=== PATIENT | female | born 1970 | race Caucasian/White ===

== ENCOUNTER → 2021-08-10 | Outpatient (CLI) | payer OTHER ==
[2021-08-10 20:11] LABS: Anion Gap 5 mmol/L (6-16); Blood Urea Nitrogen 12 mg/dL (8-24); Bun/Creatinine Ratio 20.2 (12.0-20.0); CO2, Blood 27 mmol/L (21-32); Calcium, Blood 8.6 mg/dL (8.5-10.1); Chloride, Blood 112 mmol/L (98-108); Creatinine, Blood 0.59 mg/dL (0.40-1.00); Glomerular Filtration Rate >60 (60-); Glucose, Blood 152 mg/dL (70-99); Potassium, Blood 3.6 mmol/L (3.5-5.5); Sodium, Blood 144 mmol/L (136-145)
== END | disposition home or self-care (01) ==
LOC: LAB 19:00 → LAB SHORT 19:00
PROVIDERS: Internal Medicine
DX: E11.9 Type 2 diabetes mellitus without complications (principal); D52.9 Folate deficiency anemia, unspecified; D68.51 Activated protein C resistance; I63.9 Cerebral infarction, unspecified
CPT/HCPCS: 80048

== ENCOUNTER → 2021-09-13 | Outpatient (CLI) | payer OTHER ==
[2021-09-13 07:28] LABS: International Normalized Ratio 3.62; Prothrombin Time Results 34.9 Sec (9.7-11.5)
== END | disposition home or self-care (01) ==
LOC: LAB UVN 05:33 → EDSTATUS 15:06
PROVIDERS: Internal Medicine
DX: Z79.01 Long term (current) use of anticoagulants (principal); Z51.81 Encounter for therapeutic drug level monitoring; D68.51 Activated protein C resistance
CPT/HCPCS: 85610

== ENCOUNTER → 2021-09-14 | Outpatient (CLI) | payer OTHER ==
[2021-09-14 14:05] LABS: International Normalized Ratio 2.98; Prothrombin Time Results 29.1 Sec (9.7-11.5)
== END | disposition home or self-care (01) ==
LOC: LAB UVN 11:15 → EDSTATUS 15:07
PROVIDERS: Internal Medicine
DX: Z79.01 Long term (current) use of anticoagulants (principal); Z51.81 Encounter for therapeutic drug level monitoring; I63.9 Cerebral infarction, unspecified
CPT/HCPCS: 85610

== ENCOUNTER → 2021-09-19 | Outpatient (CLI) | payer OTHER ==
[2021-09-19 06:14] LABS: International Normalized Ratio 2.54; Prothrombin Time Results 25.1 Sec (9.7-11.5)
[2021-09-19 23:19] LABS: Bilirubin, Urine Neg (Neg); Blood, Urine 1+ (Neg); Glucose Qualitative, Urine Neg (Neg); Ketones, Urine Neg (Neg); Leukocyte Esterase, Urine 1+ (Neg); Nitrite, Urine Pos (Neg); Protein, Urine 1+ (Neg); Specific Gravity, Urine 1.025 (1.003-1.022); Urobilinogen, Urine 1+ (Normal)
[2021-09-19 23:36] LABS: Appearance, Urine Hazy (Clear); Color, Urine Yellow (P-Yellow)
[2021-09-19 23:37] LABS: Bacteria Many /hpf; Calcium Oxalate Crystals Few /hpf; Red Blood Cells, Urine 0-2 /hpf (0-2); Squamous Epithelial Cells Few /hpf (Few)
== END | disposition home or self-care (01) ==
LOC: LAB UVN 05:43 → EDSTATUS 15:08
PROVIDERS: Internal Medicine
DX: Z79.01 Long term (current) use of anticoagulants (principal); Z51.81 Encounter for therapeutic drug level monitoring; D68.51 Activated protein C resistance; R39.9 Unspecified symptoms and signs involving the genitourinary system
CPT/HCPCS: 81001; 85610; 87077; 87086; 87186

== ENCOUNTER → 2021-09-26 | Outpatient (CLI) | payer OTHER ==
[2021-09-26 17:16] LABS: International Normalized Ratio 3.34; Prothrombin Time Results 32.4 Sec (9.7-11.5)
== END | disposition home or self-care (01) ==
LOC: EDSTATUS 15:09 → LAB UVN 15:32
PROVIDERS: Internal Medicine
DX: Z79.01 Long term (current) use of anticoagulants (principal); Z51.81 Encounter for therapeutic drug level monitoring
CPT/HCPCS: 85610

== ENCOUNTER → 2021-09-27 | Outpatient (CLI) | payer OTHER ==
[2021-09-27 12:06] LABS: International Normalized Ratio 3.31; Prothrombin Time Results 32.1 Sec (9.7-11.5)
== END | disposition home or self-care (01) ==
LOC: LAB UVN 10:50 → EDSTATUS 15:10
PROVIDERS: Internal Medicine
DX: Z79.01 Long term (current) use of anticoagulants (principal); Z51.81 Encounter for therapeutic drug level monitoring; D68.51 Activated protein C resistance
CPT/HCPCS: 85610

== ENCOUNTER → 2021-09-28 | Outpatient (CLI) | payer OTHER ==
[2021-09-28 11:42] LABS: International Normalized Ratio 1.92; Prothrombin Time Results 19.3 Sec (9.7-11.5)
== END | disposition home or self-care (01) ==
LOC: LAB UVN 11:23 → EDSTATUS 15:11
PROVIDERS: Internal Medicine
DX: I69.322 Dysarthria following cerebral infarction (principal)
CPT/HCPCS: 85610

== ENCOUNTER → 2021-10-03 | Outpatient (CLI) | payer OTHER ==
[2021-10-03 07:37] LABS: International Normalized Ratio 2.37; Prothrombin Time Results 23.5 Sec (9.7-11.5)
== END | disposition home or self-care (01) ==
LOC: LAB UVN 05:32 → EDSTATUS 15:14
DX: Z79.01 Long term (current) use of anticoagulants (principal); Z51.81 Encounter for therapeutic drug level monitoring
CPT/HCPCS: 85610

== ENCOUNTER → 2021-10-10 | Outpatient (CLI) | payer OTHER ==
[2021-10-10 09:35] LABS: International Normalized Ratio 3.18
== END | disposition home or self-care (01) ==
LOC: LAB UVN 08:00 → EDSTATUS 15:17
PROVIDERS: Nurse Practitioner Family
DX: I10 Essential (primary) hypertension (principal); I63.9 Cerebral infarction, unspecified
CPT/HCPCS: 85610

== ENCOUNTER → 2021-10-24 | Outpatient (CLI) | payer OTHER ==
[2021-10-24 20:03] LABS: International Normalized Ratio 2.26; Prothrombin Time Results 22.5 Sec (9.7-11.5)
== END | disposition home or self-care (01) ==
LOC: EDSTATUS 12:21 → LAB UVN 19:44
PROVIDERS: Internal Medicine
DX: Z79.01 Long term (current) use of anticoagulants (principal); Z51.81 Encounter for therapeutic drug level monitoring
CPT/HCPCS: 85610

== ENCOUNTER → 2021-11-08 | Outpatient (CLI) | payer OTHER ==
[2021-11-08 09:38] LABS: International Normalized Ratio 2.41; Prothrombin Time Results 23.9 Sec (9.7-11.5)
== END ==
LOC: LAB UVN 08:46 → EDSTATUS 12:28
DX: I63.9 Cerebral infarction, unspecified (principal); I10 Essential (primary) hypertension
CPT/HCPCS: 85610

== ENCOUNTER → 2022-01-20 | Outpatient (CLI) | payer OTHER ==
[~2022-01-20] MED LIST: ATOR80 PO; METO25ER PO; TRAZ50 PO
[2022-01-20 07:59] LABS: International Normalized Ratio 1.62; Prothrombin Time Results 16.5 Sec (9.7-11.5)
== END ==
LOC: LAB UVN 06:30 → EDSTATUS 09:38
PROVIDERS: Nurse Practitioner Family
DX: Z51.81 Encounter for therapeutic drug level monitoring (principal); I10 Essential (primary) hypertension; I63.9 Cerebral infarction, unspecified; Z79.899 Other long term (current) drug therapy
CPT/HCPCS: 85610

== ENCOUNTER → 2022-01-25 | Outpatient (CLI) | payer OTHER ==
[2022-01-25 10:09] LABS: International Normalized Ratio 2.19; Prothrombin Time Results 21.8 Sec (9.7-11.5)
== END ==
LOC: LAB UVN 08:40 → EDSTATUS 09:40
PROVIDERS: Nurse Practitioner Family
DX: Z51.81 Encounter for therapeutic drug level monitoring (principal); I63.9 Cerebral infarction, unspecified; I10 Essential (primary) hypertension
CPT/HCPCS: 85610

== ENCOUNTER → 2022-01-26 | Outpatient (CLI) | payer OTHER ==
[2022-01-26 18:14] LABS: Appearance, Urine Cloudy (Clear); Bilirubin, Urine Neg (Neg); Blood, Urine 2+ (Neg); Color, Urine Yellow (P-Yellow); Glucose Qualitative, Urine Neg (Neg); Ketones, Urine Neg (Neg); Leukocyte Esterase, Urine 2+ (Neg); Nitrite, Urine Pos (Neg); Protein, Urine 2+ (Neg); Urobilinogen, Urine 1+ (Normal)
[2022-01-26 18:34] LABS: Bacteria Many /hpf; Squamous Epithelial Cells Mod /hpf (Few); White Blood Cells, Urine 25-50 /hpf (0-5)
[2022-01-26 18:35] LABS: Hyaline Casts 0-2 /lpf (0-2); Transitional Epithelial Cells Rare /hpf (0-Rare); Uric Acid Crystals Many /hpf
== END ==
LOC: EDSTATUS 09:41 → LAB UVN 15:00
PROVIDERS: Nurse Practitioner Family
DX: N39.0 Urinary tract infection, site not specified (principal)
CPT/HCPCS: 81001; 87077; 87086; 87186

== ENCOUNTER → 2022-02-08 | Outpatient (CLI) | payer OTHER ==
[2022-02-08 09:57] LABS: International Normalized Ratio 2.5; Prothrombin Time Results 24.7 Sec (9.7-11.5)
== END ==
LOC: LAB UVN 07:15 → EDSTATUS 09:42
PROVIDERS: Internal Medicine
DX: Z51.81 Encounter for therapeutic drug level monitoring (principal); Z79.01 Long term (current) use of anticoagulants
CPT/HCPCS: 85610

== ENCOUNTER → 2022-03-08 | Outpatient (CLI) | payer OTHER ==
[~2022-03-08] MED LIST changes: +AMOCLA875 PO; +Acetaminophen650 M1 PO; +BACLOFEN5 M1 PO; +BACTRIM DS TAB1 EAC6 PO; +BUPR150ER PO; +Buspirone HCl15 MG PO; +CLON.5 PO; +DESV50 PO; +FOLI1 PO; +LEVE500 PO; +LISI5 PO; +LOPE2C PO; +ONDA4ODT MM; +OSEL75CA PO; +PRED5 PO; +SULTRIDS PO; +TOPROL XL25 MG PO; +VISBIOME 112.51 EACH PO; +VITAMIN D325 MC3 PO; +WARF2.5 PO
[2022-03-08 08:33] LABS: International Normalized Ratio 2.89; Prothrombin Time Results 28.3 Sec (9.7-11.5)
== END | disposition home or self-care (01) ==
LOC: LAB UVN 07:45 → EDSTATUS 08:51
PROVIDERS: Nurse Practitioner Family
DX: Z79.01 Long term (current) use of anticoagulants (principal); Z51.81 Encounter for therapeutic drug level monitoring
CPT/HCPCS: 85610

== ENCOUNTER 2022-03-16 16:04 | Emergency (ER) | payer OTHER ==
[~2022-03-16] VITALS: Ht 165.1 cm; Wt 126.1 kg
[2022-03-16] MEDS ORDERED: ATOR80 PO (17:48)
[2022-03-16] MEDS ORDERED: METO25ER PO (17:50)
[2022-03-16] MEDS ORDERED: TRAZ50 PO (17:53)
[2022-03-16 18:07] LABS: BASOPHILS ABSOLUTE AUTO 0.02 K/mm3 (0.00-0.23); BASOPHILS PERCENT AUTO 0 % (0-2); EOSINOPHILS PERCENT AUTO 1 % (0-6); Hematocrit 43.1 % (33.0-51.0); Hemoglobin 14.1 g/dL (11.5-16.0); IMMATURE GRAN ABSOLUTE AUTO 0.03 K/mm3 (0.00-0.10); IMMATURE GRAN PERCENT AUTO 0 % (0-1); LYMPHOCYTES ABSOLUTE AUTO 1.41 K/mm3 (0.84-5.20); LYMPHOCYTES PERCENT AUTO 14 % (21-46); MONOCYTES ABSOLUTE AUTO 0.51 K/mm3 (0.16-1.47); MONOCYTES PERCENT AUTO 5 % (4-13); Mean Corpuscular HGB 31.5 pg (26.0-34.0); Mean Corpuscular HGB Conc 32.7 g/dL (31.5-36.5); Mean Corpuscular Volume 96 fL (80-100); Mean Platelet Volume 11.2 fL (9.1-12.4); NEUTROPHILS ABSOLUTE AUTO 8.13 K/mm3 (1.96-9.15); NEUTROPHILS PERCENT AUTO 80 % (41-73); Platelet Count 211 K/mm3 (150-400); RDW Coefficient Variation 14.3 % (11.7-14.2); RDW Standard Deviation 50.3 fL (35.1-46.3); Red Blood Cell Count 4.47 M/mm3 (3.80-5.20)
[2022-03-16 18:34] LABS: Albumin, Blood 2.9 g/dL (3.4-5.0); Albumin/Globulin Ratio 0.9 (0.8-1.8); Bilirubin, Total 0.8 mg/dL (0.1-1.0); Bun/Creatinine Ratio 23.7 (12.0-20.0); Calcium, Blood 8.8 mg/dL (8.5-10.1); Creatinine, Blood 0.55 mg/dL (0.40-1.00); Globulin, Blood 3.1 g/dL (2.2-4.0); Magnesium, Blood 1.8 mg/dL (1.6-2.4)
[2022-03-16 18:36] LABS: Potassium, Blood 5.4 mmol/L (3.5-5.5)
== END 2022-03-16 20:45 | disposition home or self-care (01) ==
LOC: ER 16:04
PROVIDERS: Emergency Medicine
DX: R41.82 Altered mental status, unspecified (principal); R47.1 Dysarthria and anarthria; Z79.899 Other long term (current) drug therapy
CPT/HCPCS: 70450; 80053; 83735; 85025; 93005; 93010

== ENCOUNTER → 2022-03-29 | Outpatient (CLI) | payer OTHER ==
[2022-03-29 09:40] LABS: Prothrombin Time Results 40.3 Sec (9.7-11.5)
[2022-03-29 09:49] LABS: International Normalized Ratio 4.22
== END | disposition home or self-care (01) ==
LOC: LAB UVN 08:31 → EDSTATUS 09:07
PROVIDERS: Internal Medicine
DX: I69.351 Hemiplegia and hemiparesis following cerebral infarction affecting right dominant side (principal); D68.51 Activated protein C resistance; I77.6 Arteritis, unspecified
CPT/HCPCS: 85610

== ENCOUNTER → 2022-04-17 | Outpatient (CLI) | payer OTHER ==
[2022-04-17 16:01] LABS: Prothrombin Time Results 29.3 Sec (9.7-11.5)
== END ==
LOC: EDSTATUS 10:23 → LAB UVN 14:15
PROVIDERS: Internal Medicine
DX: Z51.81 Encounter for therapeutic drug level monitoring (principal); Z86.73 Personal history of transient ischemic attack (TIA), and cerebral infarction without residual deficits; Z79.01 Long term (current) use of anticoagulants
CPT/HCPCS: 85610

== ENCOUNTER → 2022-04-24 | Outpatient (CLI) | payer OTHER ==
[2022-04-24 10:25] LABS: International Normalized Ratio 3.01; Prothrombin Time Results 29.4 Sec (9.7-11.5)
== END | disposition home or self-care (01) ==
LOC: LAB UVN 08:51 → EDSTATUS 10:24
PROVIDERS: Internal Medicine
DX: Z51.81 Encounter for therapeutic drug level monitoring (principal); D68.2 Hereditary deficiency of other clotting factors; Z86.73 Personal history of transient ischemic attack (TIA), and cerebral infarction without residual deficits; Z86.79 Personal history of other diseases of the circulatory system; Z79.01 Long term (current) use of anticoagulants
CPT/HCPCS: 85610

== ENCOUNTER 2022-04-30 11:22 | Inpatient (IN) | payer OTHER ==
[~2022-04-30] VITALS: Ht 162.6 cm; Wt 120.0 kg
[~2022-04-30 11:22] MED LIST changes: -AMOCLA875 PO; -Acetaminophen650 M1 PO; -BACLOFEN5 M1 PO; -BUPR150ER PO; -Buspirone HCl15 MG PO; -CLON.5 PO; -DESV50 PO; -FOLI1 PO; -LEVE500 PO; -LISI5 PO; -LOPE2C PO; -ONDA4ODT MM; -OSEL75CA PO; -PRED5 PO; -SULTRIDS PO; -TOPROL XL25 MG PO; -VISBIOME 112.51 EACH PO; -VITAMIN D325 MC3 PO; -WARF2.5 PO
[2022-04-30 12:59] LABS: BASOPHILS ABSOLUTE AUTO 0.03 K/mm3 (0.00-0.23); BASOPHILS PERCENT AUTO 0 % (0-2); EOSINOPHILS PERCENT AUTO 0 % (0-6); Hematocrit 47.9 % (33.0-51.0); Hemoglobin 16.2 g/dL (11.5-16.0); IMMATURE GRAN ABSOLUTE AUTO 0.03 K/mm3 (0.00-0.10); IMMATURE GRAN PERCENT AUTO 0 % (0-1); LYMPHOCYTES ABSOLUTE AUTO 1.27 K/mm3 (0.84-5.20); LYMPHOCYTES PERCENT AUTO 11 % (21-46); MONOCYTES ABSOLUTE AUTO 0.97 K/mm3 (0.16-1.47); MONOCYTES PERCENT AUTO 8 % (4-13); Mean Corpuscular HGB 31.2 pg (26.0-34.0); Mean Corpuscular HGB Conc 33.8 g/dL (31.5-36.5); Mean Corpuscular Volume 92 fL (80-100); Mean Platelet Volume 9.9 fL (9.1-12.4); NEUTROPHILS ABSOLUTE AUTO 9.59 K/mm3 (1.96-9.15); NEUTROPHILS PERCENT AUTO 81 % (41-73); Platelet Count 176 K/mm3 (150-400); RDW Coefficient Variation 13.6 % (11.7-14.2); RDW Standard Deviation 46.4 fL (35.1-46.3); White Blood Cell Count 11.89 K/mm3 (4.00-11.30)
[2022-04-30 13:19] LABS: Bun/Creatinine Ratio 18.8 (12.0-20.0); Calcium, Blood 8.7 mg/dL (8.5-10.1); Creatinine, Blood 0.64 mg/dL (0.40-1.00); Potassium, Blood 3.8 mmol/L (3.5-5.5)
[2022-04-30] MEDS ORDERED: ATOR80 PO (13:50)
[2022-04-30] MEDS ORDERED: FOLI1 PO (13:53)
[2022-04-30] MEDS ORDERED: Buspirone HCl15 MG PO (13:53)
[2022-04-30] MEDS ORDERED: BACLOFEN5 M1 PO (13:54)
[2022-04-30] MEDS ORDERED: LISI5 PO (13:54)
[2022-04-30] MEDS ORDERED: DESV50 PO (13:55)
[2022-04-30] MEDS ORDERED: PRED5 PO (13:55)
[2022-04-30] MEDS ORDERED: TOPROL XL25 MG PO (13:56)
[2022-04-30] MEDS ORDERED: TRAZ50 PO (13:56)
[2022-04-30] MEDS ORDERED: VITAMIN D325 MC3 PO (13:57)
[2022-04-30] MEDS ORDERED: WARF2.5 PO (13:57)
[2022-04-30] MEDS ORDERED: BUPR150ER PO (13:58)
[2022-04-30] MEDS ORDERED: LEVE500 PO (13:59)
[2022-04-30] MEDS ORDERED: CLON.5 PO (14:00)
[2022-04-30] MEDS ORDERED: Acetaminophen650 M1 PO (14:00)
[2022-04-30] MEDS ORDERED: ONDA4ODT MM (14:02)
[2022-04-30 15:41] LABS: International Normalized Ratio 3.29
--- NOTE | 2022-04-30 15:48 | NUR ---
ASSUMED CARE PT IS SOMNULENT AND DIFFICULT TO AROUSE. PT WAS ABLE TO STATE MONTH OF BIRTHDAY, BUT WAS NOT ABLE TO DISCERN ANY OTHER ANSWERS FROM PT D/T SOFT SPOKEN/SLURRING/SOMNULENCE. SPO2 >92% ON 6L HF NC. MAP >65. LUNG SOUNDS COARSE W/ RHONCHI; DIM BASES. PT HAS STRONG PEDAL AND RADIAL PULSES. MOTTLING NOTED IN BLE. RIGHT SIDED DEFICIT PER REPORT, BUT PT DOES NOT MAKE ANY ATTEMPTS TO MOVE BUE/BLE OR EVEN HEAD.
--- NOTE | 2022-04-30 17:54 | NUR ---
SHIFT SUMMARY PT HAS NOT ANY ACUTE EVENTS SINCE ASSUMED CARE NOTE. HR IS NOW IN THE 100-110S. CALLED DR ALEJO TO DISCERN IF PT'S MENTATION HAS DECLINED SINCE ED. AND TOLD HER THAT PT DOES NOT MOVE ANY EXTREMITIES, HOLD HEAD UP, IS SOMNULENT, AND ROLLS EYES WHEN MOVING HEAD DURING REPOSITIONING. THIS HAS BEEN PRESENT SINCE ASSUMPTION OF CARE (SEE NOTE).
--- NOTE | 2022-04-30 18:20 | NUR ---
UPDATE AFTER REASSESSING NEURO STATUS AGAIN POST SHIFT SUMMARY, PT IS MORE AROUSABLE, BUT STILL SOMNULENT. WAS ABLE TO STAY AWAKE FOR MORE THAN 1 OR 2 RESPONSES AND WAS ABLE TO MOVE LEFT ARM.
[2022-04-30] MEDS ORDERED: SULTRIDS PO (18:39)
--- NOTE | 2022-04-30 21:39 | NUR ---
ASSUMPTION OF CARE THIS RN ASSUMED CARE OF PT AT 1915, RECEIVED REPORT FROM MINGO WIGGINS. PT LYING IN BED. PT ANSWERING YES/NO QUESTIONS. PT IS ALERT AND INTERACTING WITH THIS RN. PT ABLE TO STATE SHE IS IN THE HOSPITAL, STATE NAME AND , KNOWS THE YEAR AND ABLE TO TELL THIS RN SHE LIVES AT [facility] [place]. PT HAS APHASIA AND IS DIFFICULT TO UNDERSTAND BUT TRIES TO ANSWER QUESTIONS. PT DOES BETTER ANSWERING Y/N QUESTIONS. VSS; SEE DOCUMENTATION. DENIES SOB, GENERAL PAIN AND CP OR PRESSURE. PT LUNG SOUNDS ARE COARSE; PT IS ABLE TO COUGH TO CLEAR. PERRLA, PT FOLLOWING COMMANDS, ABLE TO MOVE L SIDE OF BODY BUT NOT R SIDE D/T HS OF CVA. PG IN KATRIN DRAWS AND FLUSHES WELL; LAB LEFT TUBE FOR THIS RN TO DRAW LACTIC LAB. PT ABLE TO VERBALIZE THAT SHE NEEDS TO BE CHANGED D/T BM. PT CHANGED AND CLEANED; REPOSITIONED AT THIS TIME WELL. PT NOW RESTING, CALL LIGHT IN REACH.
[2022-05-01 04:48] LABS: BASOPHILS ABSOLUTE AUTO 0.02 K/mm3 (0.00-0.23); BASOPHILS PERCENT AUTO 0 % (0-2); EOSINOPHILS PERCENT AUTO 0 % (0-6); Hematocrit 41.3 % (33.0-51.0); Hemoglobin 13.9 g/dL (11.5-16.0); IMMATURE GRAN ABSOLUTE AUTO 0.04 K/mm3 (0.00-0.10); IMMATURE GRAN PERCENT AUTO 0 % (0-1); LYMPHOCYTES ABSOLUTE AUTO 1.58 K/mm3 (0.84-5.20); LYMPHOCYTES PERCENT AUTO 13 % (21-46); MONOCYTES ABSOLUTE AUTO 0.77 K/mm3 (0.16-1.47); MONOCYTES PERCENT AUTO 6 % (4-13); Mean Corpuscular HGB 31.6 pg (26.0-34.0); Mean Corpuscular HGB Conc 33.7 g/dL (31.5-36.5); Mean Corpuscular Volume 94 fL (80-100); Mean Platelet Volume 10.3 fL (9.1-12.4); NEUTROPHILS ABSOLUTE AUTO 9.62 K/mm3 (1.96-9.15); NEUTROPHILS PERCENT AUTO 80 % (41-73); Platelet Count 171 K/mm3 (150-400); RDW Coefficient Variation 13.8 % (11.7-14.2); White Blood Cell Count 12.03 K/mm3 (4.00-11.30)
[2022-05-01 05:03] LABS: International Normalized Ratio 3.5; Prothrombin Time Results 33.9 Sec (9.7-11.5)
[2022-05-01 05:11] LABS: Albumin, Blood 2.5 g/dL (3.4-5.0); Albumin/Globulin Ratio 0.8 (0.8-1.8); Bilirubin, Total 0.6 mg/dL (0.1-1.0); Bun/Creatinine Ratio 22.4 (12.0-20.0); Calcium, Blood 8.3 mg/dL (8.5-10.1); Creatinine, Blood 0.71 mg/dL (0.40-1.00); Globulin, Blood 3.1 g/dL (2.2-4.0); Potassium, Blood 3.1 mmol/L (3.5-5.5); Total Protein, Blood 5.6 g/dL (6.4-8.2)
--- NOTE | 2022-05-01 05:57 | NUR ---
SHIFT SUMMARY NO CHANGES FROM ASSUMPTION OF CARE NOTE. VSS THROUGHOUT SHIFT. PT FOLLOWING COMMANDS AND NO CHANGES IN NEURO STATUS. PT STILL LETHARGIC BUT RESPONDING TO VERBAL AND TACTILE STIMULI. PT HAD 3 LARGE, LIQUID/SOFT STOOLS THIS SHIFT; LIGHT BROWN/YELLOW IN COLOR W/STRONG ODOR. PT REPOSITIONED Q2 AND PRN. NS INFUSING PER EMAR. SUCTION PROVIDED OCCASSIONALLY D/T PRODUCTIVE COUGH AND SPUTUM BUT UNABLE TO OBTAIN SPUTUM CULUTRE PT WAS NOT ABLE TO COUGH IT UP INTO SAMPLE CUP. PT CURRENTLY RESTING, CALL LIGHT IN REACH ALTHOUGH PT UNABLE TO USE D/T HS OF CVA AND DEFICIT; FREQUENT ROUNDING COMPLETED BY THIS RN AND PATIENT INTERNAL GRINDER.
[2022-05-01 11:29] LABS: Adenovirus F 40/41 Not Detected (NOT DETECT); Astrovirus Not Detected (NOT DETECT); Campylobacter Sp Not Detected (NOT DETECT); Cryptosporidium Not Detected (NOT DETECT); Cyclospora Cayetanensis Not Detected (NOT DETECT); E. Coli O157 Not Detected (NOT DETECT); Entamoeba Histolytica Not Detected (NOT DETECT); Enteroaggregative E. coli-EAEC Not Detected (NOT DETECT); Enteropathogenic E. coli-EPEC Not Detected (NOT DETECT); Enterotoxigenic E. coli-ETEC Not Detected (NOT DETECT); Giardia Lamblia Not Detected (NOT DETECT); Norovirus GI/GII Not Detected (NOT DETECT); Plesiomonas Shigelloides Not Detected (NOT DETECT); Rotavirus A Not Detected (NOT DETECT); Salmonella Sp Not Detected (NOT DETECT); Sapovirus Not Detected (NOT DETECT); Shiga Toxin-prod E. coli-STEC Not Detected (NOT DETECT); Shigella/Enteroin E. coli-EIEC Not Detected (NOT DETECT); Vibrio Cholerae Not Detected (NOT DETECT); Vibrio Sp Not Detected (NOT DETECT); Yersinia Enterocolitica Not Detected (NOT DETECT)
--- NOTE | 2022-05-01 18:11 | NUR ---
SHIFT SUMMARY PT REMAINS AWAKE AND ALERT. BP STABLE. TELEMTRY DISCONTINUED THIS SHIFT. O2 SATS REMAIN ABOVE 90% ON 4L NC. OCCASIONAL COUGH NOTED, BUT NO SPUTUM PRODUCTION. PT HAS DENIED PAIN THIS SHIFT. PT CLEARED BY SPEECH AND DIET ORDERED TODAY. ASPERATION PRECAUTIONS IN PLACE. PT INCONTINENT OF URINE THIS SHIFT AND BOWEL. LARGE LIQUID BM THIS AM AND SAMPLE SENT TO LAB. PT REPOSITIONED Q2H. WILL CONTINUE TO MONITOR AND REPORT TO ONCOMING MINGO
--- NOTE | 2022-05-01 22:58 | NUR ---
ASSUMPTION OF CARE THIS RN ASSUMED CARE OF PT AT 1900. PT LYING IN BED AND VERBALLY RESPONDING TO THIS RN, EYES ARE OPEN. PT IS REACHING FOR CUP AND DRINKING WATER INDEPENDENTLY. VS; BP 127/96, SR W/HR 96, SPO2 94% ON 2 L, RR 18, 97.6 F. PT DENIES GENERAL PAIN, CP OR PRESSURE. DENIES SOB, STATES "YES" WHEN ASKED IF SHE FEELS LIKE SHE IS BREATHING OKAY. LUNGS SOUNDS COARSE. PT HAS OCCASSIONAL PRODUCTIVE COUGH AND IS ABLE TO COUGH SPUTUM UP HERSELF. SUCTION AT BEDSIDE. PT DOES REPORT SORENESS IN HER NECK, BACLOFEN ADMINSTERED PER EMAR. PT ANSWERS "NO" WHEN ASKED IF SHE NEEDS ANYTHING RIGHT NOW OR TO HAVING ANY CONCERNS. CALL LIGHT IN REACH AND PT IS ABLE TO USE APPROPRIATELY.
[2022-05-02 05:05] LABS: BASOPHILS ABSOLUTE AUTO 0.01 K/mm3 (0.00-0.23); BASOPHILS PERCENT AUTO 0 % (0-2); EOSINOPHILS ABSOLUTE AUTO 0.02 K/mm3 (0.00-0.68); EOSINOPHILS PERCENT AUTO 0 % (0-6); Hematocrit 38.4 % (33.0-51.0); Hemoglobin 12.6 g/dL (11.5-16.0); IMMATURE GRAN ABSOLUTE AUTO 0.01 K/mm3 (0.00-0.10); IMMATURE GRAN PERCENT AUTO 0 % (0-1); LYMPHOCYTES ABSOLUTE AUTO 1.37 K/mm3 (0.84-5.20); LYMPHOCYTES PERCENT AUTO 22 % (21-46); MONOCYTES ABSOLUTE AUTO 0.43 K/mm3 (0.16-1.47); MONOCYTES PERCENT AUTO 7 % (4-13); Mean Corpuscular HGB 31.2 pg (26.0-34.0); Mean Corpuscular HGB Conc 32.8 g/dL (31.5-36.5); Mean Corpuscular Volume 95 fL (80-100); Mean Platelet Volume 10.2 fL (9.1-12.4); NEUTROPHILS ABSOLUTE AUTO 4.53 K/mm3 (1.96-9.15); NEUTROPHILS PERCENT AUTO 71 % (41-73); Platelet Count 148 K/mm3 (150-400); RDW Coefficient Variation 13.7 % (11.7-14.2); RDW Standard Deviation 48.7 fL (35.1-46.3); Red Blood Cell Count 4.04 M/mm3 (3.80-5.20); White Blood Cell Count 6.37 K/mm3 (4.00-11.30)
--- NOTE | 2022-05-02 05:27 | NUR ---
SHIFT SUMMARY PT MUCH MORE ALERT AND INTERACTIVE DURING SHIFT. NO ACUTE CHANGES FROM THIS RN'S ASSUMPTION OF CARE NOTE. VSS. PT O2 TITRATED TO 2 L; SPO2 MAINTAINED >94%. PT DENIES SOB OR DIFFICULTY BREATHING. PT SOUNDS MORE WET THAN SHE DID AT BEGINNING OF SHIFT. THIS RN NOTIFIED WEALTH MANAGEMENT ADVISOR; WEALTH MANAGEMENT ADVISOR SPOKE TO RESIDENT. ORDERS FOR BNP AND TO STOP NS FLUIDS AT THIS TIME. RESULTS STILL PENDING. PT HAS BEEN DRINKING THIS SHIFT BOTH INDEPENDENTLY AND WITH SOME ASSISTANCE AT TIMES. PT ABLE TO VERBALIZE NEEDS, ALTHOUGH AT TIMES IS DIFFICULT TO UNDERSTAND. PT HAD 2 MEDIUM, SOFT/UNFORMED STOOLS THIS SHIFT. CALL LIGHT IN REACH AND PT IS USING APPROPRIATELY
[2022-05-02 05:30] LABS: Bun/Creatinine Ratio 14.2 (12.0-20.0); Calcium, Blood 7.9 mg/dL (8.5-10.1); Creatinine, Blood 0.7 mg/dL (0.40-1.00); Potassium, Blood 3.4 mmol/L (3.5-5.5)
[2022-05-02 05:33] LABS: International Normalized Ratio 3.48; Prothrombin Time Results 33.7 Sec (9.7-11.5)
[2022-05-02 10:47] LABS: SARS-Cov-2 (COVID-19) PCR, MMC NEGATIVE (NEGATIVE)
[2022-05-02] MEDS ORDERED: LOPE2C PO (12:11)
[2022-05-02] MEDS ORDERED: VISBIOME 112.51 EACH PO (12:11)
[2022-05-02] MEDS ORDERED: OSEL75CA PO (12:11)
[2022-05-02] MEDS ORDERED: AMOCLA875 PO (12:11)
--- NOTE | 2022-05-02 14:15 | NUR ---
UPDATE DISCHARGE MED REC COMPLETE AND ORDERS FAXED TO [facility]. REPORT CALLED TO MACIEJ AT [facility]. FAMILY CALLED AND UPDATE OF RETURN TO [facility]. PT TAKEN OUT BY MEETA.
== END 2022-05-02 14:17 | disposition home or self-care (01) | DRG 871 ==
LOC: ER 11:22 → PCU 14:23
PROVIDERS: Emergency Medicine; Family Medicine; Internal Medicine; ADMIT Hospitalist
DX: A41.9 Sepsis, unspecified organism (principal); J10.08 Influenza due to other identified influenza virus with other specified pneumonia; J69.0 Pneumonitis due to inhalation of food and vomit; J96.01 Acute respiratory failure with hypoxia; I69.351 Hemiplegia and hemiparesis following cerebral infarction affecting right dominant side; D68.51 Activated protein C resistance; Z66 Do not resuscitate; Z20.822 Contact with and (suspected) exposure to COVID-19; R65.20 Severe sepsis without septic shock; I10 Essential (primary) hypertension; I69.322 Dysarthria following cerebral infarction; I69.391 Dysphagia following cerebral infarction; R13.10 Dysphagia, unspecified; G40.909 Epilepsy, unspecified, not intractable, without status epilepticus; G43.909 Migraine, unspecified, not intractable, without status migrainosus; I77.89 Other specified disorders of arteries and arterioles; G47.00 Insomnia, unspecified; E87.6 Hypokalemia
CPT/HCPCS: 31720; 36415; 71045; 80048; 80053; 82947; 83605; 83880; 85025; 85610; 87040; 87507; 92526; 92610; 94760; 94761; 96374-59; 99285-25; A9270; C1751; J1953; J2543; J3480; J7030; J7512; U0004

== ENCOUNTER → 2022-04-30 | Outpatient (CLI) | payer OTHER ==
[2022-04-30 12:11] LABS: Adenovirus Not Detected (NOT DETECT); Bordetella pertussis Not Detected (NOT DETECT); Chlamydophila pneumoniae Not Detected (NOT DETECT); Coronavirus 229E Not Detected (NOT DETECT); Coronavirus HKU1 Not Detected (NOT DETECT); Coronavirus NL63 Not Detected (NOT DETECT); Coronavirus OC43 Not Detected (NOT DETECT); Human Metapneumovirus Not Detected (NOT DETECT); Human Rhinovirus/Enterovirus Not Detected (NOT DETECT); Influenza A/2009-H1 Not Detected (NOT DETECT); Influenza A/H1 Not Detected (NOT DETECT); Influenza A/H3 Detected (NOT DETECT); Influenza B Not Detected (NOT DETECT); Mycoplasma pneumoniae Not Detected (NOT DETECT); Parainfluenza Virus 1 Not Detected (NOT DETECT); Parainfluenza Virus 2 Not Detected (NOT DETECT); Parainfluenza Virus 3 Not Detected (NOT DETECT); Parainfluenza Virus 4 Not Detected (NOT DETECT); Respiratory Syncytial Virus Not Detected (NOT DETECT); SARS-Cov-2 (COVID-19), BioFire Not Detected (NOT DETECT)
== END | disposition home or self-care (01) ==
LOC: LAB UVN 10:00 → EDSTATUS 10:25
PROVIDERS: Internal Medicine
DX: R06.89 Other abnormalities of breathing (principal)
CPT/HCPCS: 0202U

== ENCOUNTER → 2022-05-04 | Outpatient (CLI) | payer OTHER ==
[~2022-05-04] MED LIST changes: +AMOCLA875 PO; +Acetaminophen650 M1 PO; +BACLOFEN5 M1 PO; +BUPR150ER PO; +Buspirone HCl15 MG PO; +CLON.5 PO; +DESV50 PO; +FOLI1 PO; +LEVE500 PO; +LISI5 PO; +LOPE2C PO; +ONDA4ODT MM; +OSEL75CA PO; +PRED5 PO; +SULTRIDS PO; +TOPROL XL25 MG PO; +VISBIOME 112.51 EACH PO; +VITAMIN D325 MC3 PO; +WARF2.5 PO
[2022-05-04 11:05] LABS: Prothrombin Time Results 42.7 Sec (9.7-11.5)
[2022-05-04 11:19] LABS: International Normalized Ratio 4.49
== END | disposition home or self-care (01) ==
LOC: LAB UVN 10:20 → EDSTATUS 10:26
PROVIDERS: Internal Medicine
DX: Z79.01 Long term (current) use of anticoagulants (principal); Z51.81 Encounter for therapeutic drug level monitoring; D68.2 Hereditary deficiency of other clotting factors; Z86.73 Personal history of transient ischemic attack (TIA), and cerebral infarction without residual deficits
CPT/HCPCS: 85610

== ENCOUNTER → 2022-05-08 | Outpatient (CLI) | payer OTHER ==
[2022-05-08 11:21] LABS: Prothrombin Time Results 71.8 Sec (9.7-11.5)
[2022-05-08 12:04] LABS: International Normalized Ratio 7.82
== END | disposition home or self-care (01) ==
LOC: LAB UVN 10:00 → EDSTATUS 10:27
PROVIDERS: Internal Medicine
DX: Z51.81 Encounter for therapeutic drug level monitoring (principal); D68.2 Hereditary deficiency of other clotting factors; Z79.01 Long term (current) use of anticoagulants; Z86.73 Personal history of transient ischemic attack (TIA), and cerebral infarction without residual deficits
CPT/HCPCS: 85610

== ENCOUNTER → 2022-06-29 | Outpatient (CLI) | payer OTHER ==
[2022-06-29 15:37] LABS: Prothrombin Time Results 68.1 Sec (9.7-11.5)
[2022-06-29 16:04] LABS: International Normalized Ratio 7.39
== END | disposition home or self-care (01) ==
LOC: EDSTATUS 09:43 → LAB UVN 13:48
PROVIDERS: Nurse Practitioner Family
DX: Z79.01 Long term (current) use of anticoagulants (principal); Z51.81 Encounter for therapeutic drug level monitoring
CPT/HCPCS: 85610

== ENCOUNTER → 2022-07-06 | Outpatient (CLI) | payer OTHER ==
[2022-07-06 10:01] LABS: International Normalized Ratio 3.25; Prothrombin Time Results 31.6 Sec (9.7-11.5)
== END | disposition home or self-care (01) ==
LOC: LAB UVN 08:30 → EDSTATUS 09:45
PROVIDERS: Nurse Practitioner Family
DX: I69.351 Hemiplegia and hemiparesis following cerebral infarction affecting right dominant side (principal)
CPT/HCPCS: 85610

== ENCOUNTER → 2022-07-10 | Outpatient (CLI) | payer OTHER ==
[2022-07-10 11:47] LABS: Prothrombin Time Results 72.6 Sec (9.7-11.5)
[2022-07-10 12:17] LABS: International Normalized Ratio 7.92
== END | disposition home or self-care (01) ==
LOC: EDSTATUS 09:46 → LAB UVN 10:44
PROVIDERS: Nurse Practitioner Family
DX: Z79.01 Long term (current) use of anticoagulants (principal); Z51.81 Encounter for therapeutic drug level monitoring
CPT/HCPCS: 85610

== ENCOUNTER → 2022-07-13 | Outpatient (CLI) | payer OTHER ==
[2022-07-13 13:45] LABS: International Normalized Ratio 3.92; Prothrombin Time Results 37.6 Sec (9.7-11.5)
== END | disposition home or self-care (01) ==
LOC: LAB UVN 10:18 → EDSTATUS 15:36
PROVIDERS: Nurse Practitioner Family
DX: I63.9 Cerebral infarction, unspecified (principal)
CPT/HCPCS: 85610

== ENCOUNTER → 2022-07-17 | Outpatient (CLI) | payer OTHER ==
[2022-07-17 08:44] LABS: International Normalized Ratio 3.87; Prothrombin Time Results 37.2 Sec (9.7-11.5)
== END | disposition home or self-care (01) ==
LOC: LAB UVN 07:10 → EDSTATUS 15:37
PROVIDERS: Nurse Practitioner Family
DX: Z79.01 Long term (current) use of anticoagulants (principal); Z51.81 Encounter for therapeutic drug level monitoring; I63.9 Cerebral infarction, unspecified
CPT/HCPCS: 85610

== ENCOUNTER → 2022-07-20 | Outpatient (CLI) | payer OTHER ==
[2022-07-20 09:41] LABS: International Normalized Ratio 3.39; Prothrombin Time Results 32.9 Sec (9.7-11.5)
== END | disposition home or self-care (01) ==
LOC: LAB UVN 08:00 → EDSTATUS 15:37
PROVIDERS: Nurse Practitioner Family
DX: I63.9 Cerebral infarction, unspecified (principal)
CPT/HCPCS: 85610

== ENCOUNTER → 2022-07-22 | Outpatient (CLI) | payer OTHER ==
[2022-07-22 16:11] LABS: International Normalized Ratio 2.7; Prothrombin Time Results 26.6 Sec (9.7-11.5)
== END | disposition home or self-care (01) ==
LOC: LAB UVN 15:05 → EDSTATUS 15:38
PROVIDERS: Family Medicine
DX: I63.9 Cerebral infarction, unspecified (principal)
CPT/HCPCS: 85610

== ENCOUNTER → 2022-07-24 | Outpatient (CLI) | payer OTHER ==
[2022-07-24 09:17] LABS: International Normalized Ratio 2.08; Prothrombin Time Results 20.8 Sec (9.7-11.5)
== END | disposition home or self-care (01) ==
LOC: LAB UVN 07:05 → EDSTATUS 15:39
PROVIDERS: Nurse Practitioner Family
DX: I63.9 Cerebral infarction, unspecified (principal)
CPT/HCPCS: 85610

== ENCOUNTER → 2022-07-31 | Outpatient (CLI) | payer OTHER ==
[2022-07-31 09:12] LABS: International Normalized Ratio 1.88; Prothrombin Time Results 18.9 Sec (9.7-11.5)
== END | disposition home or self-care (01) ==
LOC: LAB UVN 08:40 → EDSTATUS 15:40
PROVIDERS: Family Medicine
DX: I63.9 Cerebral infarction, unspecified (principal)
CPT/HCPCS: 85610

== ENCOUNTER → 2022-08-07 | Outpatient (CLI) | payer OTHER ==
[2022-08-07 09:15] LABS: International Normalized Ratio 1.64; Prothrombin Time Results 16.7 Sec (9.7-11.5)
== END | disposition home or self-care (01) ==
LOC: LAB UVN 07:00 → EDSTATUS 15:41
PROVIDERS: Family Medicine
DX: I63.9 Cerebral infarction, unspecified (principal)
CPT/HCPCS: 85610

== ENCOUNTER 2022-09-20 16:15 | Emergency (ER) | payer OTHER ==
[~2022-09-20] VITALS: Ht 162.6 cm; Wt 117.9 kg
[2022-09-20 18:30] VITALS: BP 127/83
== END 2022-09-20 20:00 | disposition home or self-care (01) ==
LOC: ER 16:15
DX: S01.511A Laceration without foreign body of lip, initial encounter (principal); W07.XXXA Fall from chair, initial encounter; Z79.899 Other long term (current) drug therapy; Z79.52 Long term (current) use of systemic steroids; I10 Essential (primary) hypertension; M19.90 Unspecified osteoarthritis, unspecified site; G40.909 Epilepsy, unspecified, not intractable, without status epilepticus; G43.909 Migraine, unspecified, not intractable, without status migrainosus
CPT/HCPCS: 70450; 70486; A9270

== ENCOUNTER 2023-07-13 13:35 | Emergency (ER) | payer OTHER ==
[~2023-07-13] VITALS: Ht 167.6 cm; Wt 122.5 kg
[2023-07-13 14:00] VITALS: BP 110/79
[2023-07-13] MEDS ORDERED: CYCL10 PO (14:13)
[2023-07-13] MEDS ORDERED: WARF2.5 PO (14:18)
[2023-07-13] MEDS ORDERED: WARF5 PO (14:19)
[2023-07-13] MEDS ORDERED: Phytonadione 5 MG in NS 50 ML IV ONE (15:00)
[2023-07-13 16:50] LABS: International Normalized Ratio 2.07; Prothrombin Time Results 20.9 Sec (9.7-11.5)
== END 2023-07-13 19:41 | disposition home or self-care (01) ==
LOC: ER 13:35
PROVIDERS: Emergency Medicine
DX: D68.9 Coagulation defect, unspecified (principal); T45.515A Adverse effect of anticoagulants, initial encounter; Z79.899 Other long term (current) drug therapy; Z79.52 Long term (current) use of systemic steroids; I10 Essential (primary) hypertension; M19.90 Unspecified osteoarthritis, unspecified site; G40.909 Epilepsy, unspecified, not intractable, without status epilepticus; G43.909 Migraine, unspecified, not intractable, without status migrainosus
CPT/HCPCS: 85610; J3430

== ENCOUNTER → 2024-02-09 | Outpatient (CLI) | payer OTHER ==
[~2024-02-09] MED LIST changes: +CEPH500 PO; +CYCL10 PO; +WARF5 PO
[2024-02-09 18:25] LABS: Prothrombin Time Results 45.2 Sec (9.7-11.5)
[2024-02-09 18:39] LABS: International Normalized Ratio 4.74
== END | disposition home or self-care (01) ==
LOC: LAB SHORT 08:46 → LAB 08:46
DX: I63.9 Cerebral infarction, unspecified (principal)
CPT/HCPCS: 85610; 85730

== ENCOUNTER 2024-02-18 09:41 | Inpatient (IN) | payer OTHER ==
[~2024-02-18] VITALS: Ht 167.6 cm; Wt 108.6 kg
[2024-02-18 10:30] LABS: BASOPHILS ABSOLUTE AUTO 0.04 K/mm3 (0.00-0.23); BASOPHILS PERCENT AUTO 0 % (0-2); EOSINOPHILS ABSOLUTE AUTO 0.01 K/mm3 (0.00-0.68); EOSINOPHILS PERCENT AUTO 0 % (0-6); Hematocrit 44.5 % (33.0-51.0); Hemoglobin 14.3 g/dL (11.5-16.0); IMMATURE GRAN ABSOLUTE AUTO 0.04 K/mm3 (0.00-0.10); IMMATURE GRAN PERCENT AUTO 0 % (0-1); LYMPHOCYTES ABSOLUTE AUTO 2.56 K/mm3 (0.84-5.20); LYMPHOCYTES PERCENT AUTO 20 % (21-46); MONOCYTES ABSOLUTE AUTO 0.77 K/mm3 (0.16-1.47); MONOCYTES PERCENT AUTO 6 % (4-13); Mean Corpuscular HGB 29.9 pg (26.0-34.0); Mean Corpuscular HGB Conc 32.1 g/dL (31.5-36.5); Mean Corpuscular Volume 93 fL (80-100); Mean Platelet Volume 9.3 fL (9.1-12.4); NEUTROPHILS PERCENT AUTO 73 % (41-73); Platelet Count 279 K/mm3 (150-400); RDW Standard Deviation 47.4 fL (35.1-46.3); Red Blood Cell Count 4.79 M/mm3 (3.80-5.20); White Blood Cell Count 12.72 K/mm3 (4.00-11.30)
[2024-02-18] MEDS ORDERED: NS 1,000 ML IV SCH ×3 (10:35→15:00)
[2024-02-18] MEDS ORDERED: CefTRIAXone Sodium 1,000 MG in NS 100 ML IV ONE (10:35)
[2024-02-18] MEDS ORDERED: Vancomycin HCL 2,000 MG in NS 500 ML IV ONE (11:20)
[2024-02-18 11:39] LABS: Prothrombin Time Results 45.1 Sec (9.7-11.5)
[2024-02-18 11:46] LABS: Source, Urine Fem Cath
[2024-02-18 11:46] LABS: International Normalized Ratio 4.73
[2024-02-18 11:51] LABS: Alanine Aminotransfer (ALT/SGP <6 U/L (12-78); Albumin/Globulin Ratio 0.7 (0.8-1.8); Alk Phos 57 U/L (50-136); Anion Gap 15 mmol/L (3-11); Aspartate Aminotrans (AST/SGOT 10 U/L (12-37); Bilirubin, Total 0.5 mg/dL (0.1-1.0); Blood Urea Nitrogen 14 mg/dL (8-24); Bun/Creatinine Ratio 23.3 (12.0-20.0); CO2, Blood 22 mmol/L (21-32); Calcium, Blood 6.7 mg/dL (8.5-10.1); Chloride, Blood 118 mmol/L (98-108); Glomerular Filtration Rate 107 (60-); Glucose, Blood 102 mg/dL (70-99); Potassium, Blood 3.1 mmol/L (3.5-5.5); Sodium, Blood 152 mmol/L (136-145)
[2024-02-18 12:01] LABS: Appearance, Urine Turbid (Clear); Bilirubin, Urine Neg (Neg); Blood, Urine 5+ (Neg); Color, Urine Red (P-Yellow); Glucose Qualitative, Urine Neg (Neg); Ketones, Urine 3+ (Neg); Leukocyte Esterase, Urine 3+ (Neg); Nitrite, Urine Neg (Neg); Protein, Urine 4+ (Neg); Specific Gravity, Urine 1.025 (1.003-1.022); Urobilinogen, Urine NORM (Normal)
[2024-02-18 12:09] LABS: Influenza A, PCR NEGATIVE (NEGATIVE); Influenza B, PCR NEGATIVE (NEGATIVE); Resp Syncytial Virus, PCR NEGATIVE (NEGATIVE); SARS-Cov-2 (COVID-19) PCR, MMC NEGATIVE (NEGATIVE)
[2024-02-18 12:43] LABS: Bacteria Mod /hpf; Red Blood Cells, Urine TNTC /hpf (0-2); Squamous Epithelial Cells Rare /hpf (Few); White Blood Cells, Urine TNTC /hpf (0-5)
[2024-02-18] MEDS ORDERED: Ondansetron HCl 2 MG / ML 2ML Vial IV PRN (15:00)
[2024-02-18] MEDS ORDERED: DiphenhydrAMINE HCL 25 MG Cap PO PRN (15:05)
[2024-02-18] MEDS ORDERED: Acetaminophen 325 MG TABLET PO PRN (15:05)
[2024-02-18] MEDS ORDERED: FLU VACC TS2024-25(6MOS UP)/PF 45 MCG/0.5 ML SYRINGE IM SCH (15:05)
[2024-02-18] MEDS ORDERED: Potassium Chl 20MEQ/Water100ML 100 ML IV SCH (15:15)
[2024-02-18] MEDS ORDERED: DiphenhydrAMINE HCl 50 MG/ML 1ML Vial IV PRN (17:50)
[2024-02-18 19:30] VITALS: BP 114/100
[2024-02-18 19:45] VITALS: BP 128/89
[2024-02-18] MEDS ORDERED: Vancomycin HCL 1,000 MG in NS 250 ML IV SCH (20:00)
[2024-02-18] MEDS ORDERED: Lactobacil 2-S.Thermo-Bifido 1 1 Cap PO SCH (21:00)
[2024-02-19 00:30] VITALS: BP 127/106
[2024-02-19 04:00] VITALS: BP 136/98
[2024-02-19 04:16] LABS: BASOPHILS ABSOLUTE AUTO 0.04 K/mm3 (0.00-0.23); BASOPHILS PERCENT AUTO 0 % (0-2); EOSINOPHILS ABSOLUTE AUTO 0.01 K/mm3 (0.00-0.68); EOSINOPHILS PERCENT AUTO 0 % (0-6); Hematocrit 40.6 % (33.0-51.0); Hemoglobin 12.8 g/dL (11.5-16.0); IMMATURE GRAN ABSOLUTE AUTO 0.04 K/mm3 (0.00-0.10); IMMATURE GRAN PERCENT AUTO 0 % (0-1); LYMPHOCYTES ABSOLUTE AUTO 2.25 K/mm3 (0.84-5.20); LYMPHOCYTES PERCENT AUTO 20 % (21-46); MONOCYTES ABSOLUTE AUTO 0.66 K/mm3 (0.16-1.47); MONOCYTES PERCENT AUTO 6 % (4-13); Mean Corpuscular HGB 29.7 pg (26.0-34.0); Mean Corpuscular HGB Conc 31.5 g/dL (31.5-36.5); Mean Corpuscular Volume 94 fL (80-100); Mean Platelet Volume 8.9 fL (9.1-12.4); NEUTROPHILS ABSOLUTE AUTO 8.53 K/mm3 (1.96-9.15); NEUTROPHILS PERCENT AUTO 74 % (41-73); Platelet Count 267 K/mm3 (150-400); RDW Standard Deviation 47.9 fL (35.1-46.3); Red Blood Cell Count 4.31 M/mm3 (3.80-5.20); White Blood Cell Count 11.53 K/mm3 (4.00-11.30)
[2024-02-19 04:39] LABS: Prothrombin Time Results 42.3 Sec (9.7-11.5)
[2024-02-19] MEDS ORDERED: VITAMIN D32000 UNI1 PO (04:48)
[2024-02-19] MEDS ORDERED: MIRALAX17 GM PO (04:48)
[2024-02-19] MEDS ORDERED: NARCAN4 M1 (04:50)
[2024-02-19] MEDS ORDERED: HYDR1TAB94 PO (04:50)
[2024-02-19] MEDS ORDERED: SENN187 PO (04:52)
[2024-02-19] MEDS ORDERED: ONDA4 PO (04:53)
[2024-02-19 04:54] LABS: Bun/Creatinine Ratio 17.4 (12.0-20.0); Creatinine, Blood 0.69 mg/dL (0.40-1.00); Potassium, Blood 3.9 mmol/L (3.5-5.5)
[2024-02-19] MEDS ORDERED: VRAYLAR1.5 MG PO (04:54)
[2024-02-19] MEDS ORDERED: BISA10S PR (04:54)
[2024-02-19 04:56] LABS: Calcium, Blood 8.7 mg/dL (8.5-10.1)
[2024-02-19 06:03] LABS: International Normalized Ratio 4.41
--- NOTE | 2024-02-19 06:30 | NUR ---
ASSUMPTION OF CARE / SHIFT SUMMARY PT ARRIVED TO PCU AT 192, THIS RN IN SHIFT REPORT. AM RN SETTLED PT. THIS RN IN ROOM AFTERWARDS TO ASSESS PT. SISTER IN LAW AT BEDSIDE AND ABLE TO PROVIDE SOME INFORMATION, OTHER DATA GATHERED FROM [facility] RECORDS. PT A&O X 2-3; PERSON, SELF, PLACE. OTHER ORIENTATION QUESTIONS HARD TO GAUGE AND ASSESS D/T PT'S HX OF CVA WITH APHASIA. PT DOES BETTER WITH YES/NO QUESTIONS, BUT STILL DIFFICULT TO CONVERSE AND INTERACT. PT TRACKING, MAKING EYE CONTACT AND ABLE TO FOLLOW COMMANDS. PT WITH R SIDE HEMIPLEGIA AND L SIDED WEAKNESS, ALTHOUGH IS STILL ABLE TO USE AND MOVE LEFT SIDE. RUE WITH CONTRACTURES. SCATTERED BRUISING T/O, REDDENED AREA TO COCCYX BUT IS BLANCHABLE. MEPILEX PLACED, Q2 TURNING AND PICTURES IN CHART. PT INCONTINENT AT BASELINE AND TOTAL CARE PT, ATTENDS IN PLACE AND CHANGED PRN. PT WITH 1 SATURATED ATTENDS, MIXED WITH STOOL THIS SHIFT. FULL BEDBATH COMPLETED. PT WITH REDNESS/JUAN PABLO TO TO FACE/CHEEKS. VSS; SBP 120 - 140, HRR SINUS IN 80 - 90'S, AFEBRILE, SPO2 97-98% ON RA. NO ACUTE CHANGES DURING SHIFT. IV POTASSIUM GIVEN PER MAR, AM LABS SHOWED INCREASE TO NORMAL LIMITS. IV ABX PER EMAR. CT OF ABD/PELVIS COMPLETED WITH IMAGING LAST NIGHT. PT ABLE TO USE CALL LIGHT FOR NEEDS, BUT DIFFICULTY EXPRESSING ALL NEEDS COMPLETELY. ABLE TO EXPRESS SOME NEEDS. WILL UPDATE ONCOMING RN.
[2024-02-19 08:07] VITALS: BP 144/127
[2024-02-19] MEDS ORDERED: CefTRIAXone Sodium 2,000 MG in NS 100 ML IV SCH ×2 (09:00→16:00)
[2024-02-19] MEDS ORDERED: CefTRIAXone Sodium 1,000 MG in NS 100 ML IV ONE (09:00)
[2024-02-19] MEDS ORDERED: Piperacillin/Tazobactam Sod 3.375 GM in NS 100 ML IV SCH (09:00)
[2024-02-19] MEDS ORDERED: Warfarin Sodium 2.5 MG Tab PO SCH (09:00)
[2024-02-19 10:12] LABS: Albumin, Blood 2.8 g/dL (3.4-5.0); Albumin/Globulin Ratio 0.9 (0.8-1.8); Bilirubin, Total 0.6 mg/dL (0.1-1.0); Globulin, Blood 3.2 g/dL (2.2-4.0)
[2024-02-19] MEDS ORDERED: Lactated Ringer's 1,000 ML IV SCH (11:20)
[2024-02-19] MEDS ORDERED: Cyclobenzaprine HCl 10 MG Tab PO PRN (11:20)
[2024-02-19 11:31] LABS: Vancomycin, Trough 27.6 ug/mL (5.0-10.0)
[2024-02-19 15:46] VITALS: BP 122/111
[2024-02-19 16:00] VITALS: BP 125/91
--- NOTE | 2024-02-19 18:00 | NUR ---
END OF SHIFT NOTE: NO ACUTE EVENTS THIS SHIFT. PT ALERT, ORIENTED X3-4. ABLE TO ANSWER YES/NO QUESTIONS, ABLE TO GIVE THUMBS UP/DOWN TO COMMUNICATE MOST NEEDS. MOST SPEECH IS MUMBLED, WORDS ARE INTERMITTENTLY IDENTIFIABLE. VSS. HR 80-110'S, UP TO 140'S WHEN REPORTEDLY UNCOMFORTABLE SITTING UP; HR IMPROVED W/ LAYING FLAT. SBP 120-140'S, MAP >65. SPO2 >95% ON RA, RESPIRATIONS EVEN & UNLABORED. AFEBRILE. PT TOLERATING PUREE DIET W/ NECTAR THICK LIQUIDS PER SPEECH THERAPY RECOMMENDATIONS. PLANS FOR NPO AT 0000 FOR POSSIBLE PROCEDURE IN AM. INCONTINENT VOIDS, ATTENDS IN PLACE. URINE APPEARS DARK IN ATTENDS, MAROON IN COLOR. 1 SMALL INCONTINENT BM. DENIES ABD PAIN TODAY. FULL BED BATH/LINEN CHANGE THIS SHIFT; PT UP TO CHAIR W/ LIFT ASSIST THIS AFTERNOON FOR APPROX 3HRS. Q2HR REPOSITIONING WHILE IN BED. FAMILY MEMBERS TO BEDSIDE, VERY INVOLVED AND SUPPORTIVE OF PT CARE. NO OTHER NEEDS AT THIS TIME, PT EATING DINNER W/ DAUGHTER FEEDING ASSISTANCE. CALL LIGHT IN REACH.
[2024-02-19 19:47] VITALS: BP 122/93
[2024-02-19] MEDS ORDERED: LevETIRAcetam 500 MG Tab PO SCH (21:00)
[2024-02-19] MEDS ORDERED: BusPIRone HCl 10 MG Tab PO SCH (21:00)
[2024-02-19] MEDS ORDERED: Atorvastatin 40 MG Tab PO SCH (21:00)
[2024-02-19] MEDS ORDERED: LevETIRAcetam 100 MG/ML 5ML ORAL SYR PO SCH (21:30)
[2024-02-20 04:16] VITALS: BP 148/103
[2024-02-20 04:30] LABS: BASOPHILS ABSOLUTE AUTO 0.03 K/mm3 (0.00-0.23); BASOPHILS PERCENT AUTO 0 % (0-2); EOSINOPHILS ABSOLUTE AUTO 0.04 K/mm3 (0.00-0.68); EOSINOPHILS PERCENT AUTO 0 % (0-6); Hematocrit 35.9 % (33.0-51.0); Hemoglobin 11.2 g/dL (11.5-16.0); IMMATURE GRAN ABSOLUTE AUTO 0.04 K/mm3 (0.00-0.10); IMMATURE GRAN PERCENT AUTO 0 % (0-1); LYMPHOCYTES ABSOLUTE AUTO 1.63 K/mm3 (0.84-5.20); LYMPHOCYTES PERCENT AUTO 17 % (21-46); MONOCYTES PERCENT AUTO 5 % (4-13); Mean Corpuscular HGB 29.5 pg (26.0-34.0); Mean Corpuscular HGB Conc 31.2 g/dL (31.5-36.5); Mean Corpuscular Volume 95 fL (80-100); Mean Platelet Volume 9.3 fL (9.1-12.4); NEUTROPHILS ABSOLUTE AUTO 7.41 K/mm3 (1.96-9.15); NEUTROPHILS PERCENT AUTO 77 % (41-73); Platelet Count 243 K/mm3 (150-400); RDW Coefficient Variation 14.3 % (11.7-14.2); RDW Standard Deviation 48.9 fL (35.1-46.3); White Blood Cell Count 9.65 K/mm3 (4.00-11.30)
[2024-02-20 04:52] LABS: Prothrombin Time Results 42.4 Sec (9.7-11.5)
[2024-02-20 05:11] LABS: Albumin, Blood 2.4 g/dL (3.4-5.0); Albumin/Globulin Ratio 0.9 (0.8-1.8); Bilirubin, Total 0.8 mg/dL (0.1-1.0); Bun/Creatinine Ratio 13.4 (12.0-20.0); Calcium, Blood 8.4 mg/dL (8.5-10.1); Creatinine, Blood 0.6 mg/dL (0.40-1.00); Globulin, Blood 2.7 g/dL (2.2-4.0); Potassium, Blood 3.5 mmol/L (3.5-5.5); Total Protein, Blood 5.1 g/dL (6.4-8.2)
[2024-02-20 05:23] LABS: International Normalized Ratio 4.42
--- NOTE | 2024-02-20 06:39 | NUR ---
PT REMAINED STABLE THROUGHOUT THE SHIFT. PT TOLERATING IV FLUIDS AND IV ABX WELL. PT APPEARS AOX3 BUT IS DIFFICULT TO DETERMINE WITH PT IMPAIRED COMMUNICATION STATUS. PT TURNED EVERY 2 HOURS TO PREVENT SKIN BREAK DOWN. PT HAD INCONTINENT BM/URINE X2. POWER GLIDE WAS PLACED IN LEFT UPPER ARM WITH GOOD BLOOD RETURN, AM LABS DRAWN FROM THAT. NEW IV PLACED TO LEFT WRIST AND INFUSING W/O PROBLEM. POWER GLIDE ALSO INFUSING W/O PROBLEM. PT WAS MADE NPO AT MIDNIGHT FOR PROCEDURE TODAY. UNTIL MIDNIGHT PT WAS ABLE TO TAKE SIPS OF WATER INDEPENDENTLY. PT GIVEN SPONGES AFTER MIDNIGHT TO HELP WITH DRY MOUTH. PT DOES HAVE WHITE COATING ON TONGUE, ORAL CARE ATTEMPTED BUT PT CLOSES MOUTH AROUND SPONGE AND IS UNABLE TO COOPERATE WITH ORAL CARE. PT WAS ABLE TO TAKE MEDS CRUSHED IN APPLE SAUCE. LIQUID PO KEPPRA GIVEN UNABLE TO CRUSH PILL. PT IS ABLE TO ANSWER SIMPLE YES/NO QUESTIONS WITH A FEW WORDS OR HAND SIGNALS.
[2024-02-20] MEDS ORDERED: Venlafaxine HCl 75 MG CapCR PO SCH (09:00)
[2024-02-20] MEDS ORDERED: Metoprolol Succinate 25 MG TABCR PO SCH (09:00)
[2024-02-20] MEDS ORDERED: CARIPRAZINE 1.5 MG PO SCH (09:00)
[2024-02-20 09:14] VITALS: BP 134/93
[2024-02-20] MEDS ORDERED: Phytonadione 5 MG Tab PO ONE (11:00)
[2024-02-20 12:48] VITALS: BP 125/89
[2024-02-20 17:11] VITALS: BP 120/67
[2024-02-20] MEDS ORDERED: Metoprolol Tartrate 25 MG Tab PO ONE (18:20)
[2024-02-20 19:04] LABS: Base Excess Venous -2.7 mmol/L; Bicarbonate Venous 22.6 mmol/L (24.0-30.0); PCO2 Venous 35.1 mmHg (38-42); pH Blood Venous 7.41 (7.34-7.37)
--- NOTE | 2024-02-20 19:23 | NUR ---
SHIFT SUMMARY: NEURO: PT CONTINUES AT BASELINE. IS NO VERBAL BUT CAN USE L ARM TO GIVE A THUMBS UP OR DOWN FOR YES OR NO. FOLLOWS COMMANDS ON NONFLACID SIDE. PT ABLE TO TRACK THIS RN ACROSS ROOM. PT A LITTLE ALTERED THIS EVENING. PROVIDER AWARE. CARDIAC: DENIES ANY CP, TIGHTNESS, OR PRESSURE WITH A THUMBS DOWN WHEN ASKED. NOT ON TELE. VITAL SIGNS. PT BECAME TACHY THIS EVENING IN THE 120/130'S. PT PLACED ON TELE PER PROVIDER ORDERS. RESP:EQUAL NONLABORED RESPIRATIONS. DENIES ANY SOB. MAINTAINING O2 SAT ABOVE 95%. /: PT INCONTINENT OF BOTH BOWEL AND URINE. ATTENDS IN PLACE. SKIN: SCATTERED BRUISING. REDNESS TO COCCYX. DRESSING IN PLACE. LINES: POWERGLIDE TO NANDINI FLUSHES BUT DOES NOT DRAW. 22G LWR. DOES NOT DRAW. THIS EVENING PT BECAME TACHY IN THE 120'S AND "SEEMS OFF AND ALTERED" PER SISTER. PT PLACED ON TELE PER PROVIDER ORDERS. PROVIDER CAME BY TO SEE PT AND IS NOT CONCERNED FOR ANY ACUTE NEURO CHANGES. PT MEDICATED WITH MOTOPROLOL EARLY PER PROVIDER ORDERS. REPORT TO ONCOMING RN TO ASSUME CARE OF PT.
[2024-02-20 19:41] VITALS: BP 131/84
[2024-02-20] MEDS ORDERED: Metoprolol Tartrate 25 MG Tab PO SCH (21:00)
[2024-02-20 23:46] VITALS: BP 118/74
[2024-02-21] VITALS (11 sets, daily range): BP systolic 110–130; BP diastolic 75–102
[2024-02-21 04:21] LABS: International Normalized Ratio 1.34
[2024-02-21 04:28] LABS: BASOPHILS ABSOLUTE AUTO 0.04 K/mm3 (0.00-0.23); BASOPHILS PERCENT AUTO 1 % (0-2); EOSINOPHILS ABSOLUTE AUTO 0.11 K/mm3 (0.00-0.68); EOSINOPHILS PERCENT AUTO 1 % (0-6); Hematocrit 35.4 % (33.0-51.0); Hemoglobin 11.8 g/dL (11.5-16.0); IMMATURE GRAN ABSOLUTE AUTO 0.06 K/mm3 (0.00-0.10); IMMATURE GRAN PERCENT AUTO 1 % (0-1); LYMPHOCYTES ABSOLUTE AUTO 2.24 K/mm3 (0.84-5.20); LYMPHOCYTES PERCENT AUTO 26 % (21-46); MONOCYTES ABSOLUTE AUTO 0.58 K/mm3 (0.16-1.47); MONOCYTES PERCENT AUTO 7 % (4-13); Mean Corpuscular HGB 30.2 pg (26.0-34.0); Mean Corpuscular HGB Conc 33.3 g/dL (31.5-36.5); Mean Corpuscular Volume 91 fL (80-100); Mean Platelet Volume 9.7 fL (9.1-12.4); NEUTROPHILS ABSOLUTE AUTO 5.49 K/mm3 (1.96-9.15); NEUTROPHILS PERCENT AUTO 64 % (41-73); Platelet Count 208 K/mm3 (150-400); RDW Coefficient Variation 14.5 % (11.7-14.2); RDW Standard Deviation 46.6 fL (35.1-46.3); Red Blood Cell Count 3.91 M/mm3 (3.80-5.20); White Blood Cell Count 8.52 K/mm3 (4.00-11.30)
[2024-02-21 04:35] LABS: Bun/Creatinine Ratio 13.3 (12.0-20.0); Calcium, Blood 8.4 mg/dL (8.5-10.1); Creatinine, Blood 0.6 mg/dL (0.40-1.00)
--- NOTE | 2024-02-21 06:08 | NUR ---
SHIFT SUMMARY NO ACUTE CHANGES DURING NOC. SPEECH IS DIFFICULT TO UNDERSTAND, BUT PT IS USUALLY ABLE TO ADDRESS NEEDS WITH GESTURES. LETHARGIC, BUT ROUSES TO VERBAL STIMULI. RIGHT SIDE IS COMPLETELY FLACCID AT BASELINE. FOLLOWS COMMANDS WITH LEFT SIDE. PT IS ASPIRATION RISK- TOOK MEDS CRUSHED WITH BITES OF PUDDING WITHOUT DIFFICULTY. THICKENED LIQUIDS ATTEMPTED, BUT PT HAS DIFFICULTY SWALLOWING AND STARTED COUGHING- PO LIQUIDS HELD AT THIS TIME. HR LOW 100s AT BEGINNING OF SHIFT- SINUS TACH. NOW 70s-80s- NSR. BP STABLE. RA SATS STABLE. OCCASIONAL MOIST, WEAK COUGH. AFEBRILE. RESPIRATIONS EVEN AND UNLABORED. INCONTINENT OF SMALL LOOSE BROWN STOOL AND ALSO INCONTINENT OF URINE. REPOSITIONED Q2H. WILL REPORT TO ONCOMING RN WHEN AVAILABLE.
[2024-02-21] MEDS ORDERED: Enoxaparin 40 MG/0.4 ML SYR SC SCH (07:00)
[2024-02-21 11:22] LABS: Anti-Xa UFH, PHA Monitoring <0.10 IU/mL
[2024-02-21] MEDS ORDERED: Dose Adjust by Pharmacy XX STA (11:36)
[2024-02-21] MEDS ORDERED: Heparin Sodium,Porcine/0.5 NS 500 ML IV SCH (11:40)
--- NOTE | 2024-02-21 15:47 | NUR ---
Spirirual Care Visit. Pt is awake in bed and sister is at bedside. Pt. displayed a limited ability to communicate so the primary focus of the visit was with the sister. Faciliated a life review. Prayed for Pt. Both Pt. and sister verbalized gratitude for the spiriutal care visit and welcomed this blade grader operator to return tomorrow.
[2024-02-21] MEDS ORDERED: Enoxaparin 100 MG/ML 1ML SYR SC SCH (17:00)
--- NOTE | 2024-02-21 19:30 | NUR ---
SHIFT SUMMARY NEURO: PT ALERT AND DROWSY OFF AND ON THROUGHOUT THE DAY. ALTHOUGHT ABLE TO FOLLOW COMMANDS. CARDIAC: SINUS IN THE 80'S THROUGHOUT THE DAY. DENIES ANY CP OR SOB. VSS. PT CONTINUES ON TELE. RESP: ON RA. MAINTAINING O2 SATS ABOVE 95%. GI/: PT INCONTINENT OF URINE AND STOOL. PTS POWERGLIDE IN HER NANDINI INFILTRATED IN CT. THERE IS SWELLING TO NANDINI. MARCK WRAP PLACED TO ARM TO HELP WITH SWELLING. PT WENT TO RADIOLOGY FOR A CT GUIDED DRAIN IN HER ABD. DRAINAGE DEVICE IN PLACE WITH A DRAINAGE BAG. DRAINAGE IS VERY BLOODY. NO BLEEDING NOTED AT THE INSERTION SITE. PT DENIES ANY ABD PAIN. NO OTHER SIGNIFICANT EVENTS OR CHANGES HAPPENED THIS SHIFT. REPORT TO MINGO MORRISON TO ASSUME CARE OF PT.
--- NOTE | 2024-02-22 05:44 | NUR ---
SHIFT SUMMARY: PT ALERT TO VERBAL STIMULI, DID NOT SLEEP MUCH THIS SHIFT. RESPONDS TO YES OR NO QUESTIONS WITH A THUMBS UP OR THUMBS DOWN. PT DENIES PAIN. RIGHT-SIDED NEURO DEFICITS FROM PREVIOUS STROKE. PT INCONTINENT TO BOWEL AND URINE AT BASELINE AND DURING SHIFT. SINUS RHYTHM ON MONITOR 70-80'S. MAP >70. SPO2 >94% ON ROOM AIR, LUNGS CLEAR. DRAIN FOR ABDOMINAL ABSCESS PLACED YESTERDAY, DRAINING BLOOD THROUGH SHIFT. SURGICAL SITE IS WNL. ABDOMEN IS SOFT AND NONTENDER. PT HAS POWERGLIDE AND PERIPHERAL IV. LEFT UPPER ARM IS BANDAGED WITH COMPRESSION BANDAGE FROM AN INFILTRATED IV PRIOR TO THIS SHIFT.
[2024-02-22 08:00] VITALS: BP 101/87
[2024-02-22 08:04] LABS: BASOPHILS ABSOLUTE AUTO 0.02 K/mm3 (0.00-0.23); BASOPHILS PERCENT AUTO 0 % (0-2); EOSINOPHILS ABSOLUTE AUTO 0.07 K/mm3 (0.00-0.68); EOSINOPHILS PERCENT AUTO 1 % (0-6); Hematocrit 37.7 % (33.0-51.0); IMMATURE GRAN ABSOLUTE AUTO 0.03 K/mm3 (0.00-0.10); IMMATURE GRAN PERCENT AUTO 0 % (0-1); LYMPHOCYTES ABSOLUTE AUTO 2.14 K/mm3 (0.84-5.20); LYMPHOCYTES PERCENT AUTO 28 % (21-46); MONOCYTES ABSOLUTE AUTO 0.76 K/mm3 (0.16-1.47); MONOCYTES PERCENT AUTO 10 % (4-13); Mean Corpuscular HGB 30.2 pg (26.0-34.0); Mean Corpuscular HGB Conc 31.8 g/dL (31.5-36.5); Mean Corpuscular Volume 95 fL (80-100); Mean Platelet Volume 10.1 fL (9.1-12.4); NEUTROPHILS ABSOLUTE AUTO 4.72 K/mm3 (1.96-9.15); NEUTROPHILS PERCENT AUTO 61 % (41-73); Platelet Count 213 K/mm3 (150-400); RDW Coefficient Variation 14.6 % (11.7-14.2); Red Blood Cell Count 3.98 M/mm3 (3.80-5.20); White Blood Cell Count 7.74 K/mm3 (4.00-11.30)
[2024-02-22 08:20] LABS: Bun/Creatinine Ratio 9.6 (12.0-20.0); Calcium, Blood 8.5 mg/dL (8.5-10.1); Creatinine, Blood 0.62 mg/dL (0.40-1.00); Potassium, Blood 3.1 mmol/L (3.5-5.5)
--- NOTE | 2024-02-22 08:52 | NUR ---
DR STARKEY AT BEDSIDE, NEW ORDERS OBTAINED FOR LR INFUSION. PT ASIPRATED LAST NOC ON CRUSHED PILLS, PER DR STARKEY WILL HOLD BREAKFAST TRAY AND MORNING MEDICATIONS FOR BARRIUM SWALLOW STUDY. FAMILY IS UPDATED THAT FOOD WILL BE HELD FOR THIS TIME.
[2024-02-22] MEDS ORDERED: Lactated Ringer's 1,000 ML IV SCH (08:55)
[2024-02-22] MEDS ORDERED: Potassium Chl 20MEQ/Water100ML 100 ML IV SCH (10:10)
--- NOTE | 2024-02-22 11:49 | NUR ---
Pt. is awake in bed. Sister is at bedside and welcomes my visit. Pt. is unsettled about delays in her procedure. While Pt. remains pretty quiet, the Pts. sister displays evidence of being the Pts. champion and advocate. Matters of marques and belief are considered. Pt. welcomed prayer. Prayed with Pt. Facilitated more life review after prayer and listened with a calm presence. Sister verbalized gratitude for the spiritual care visit.
[2024-02-22] MEDS ORDERED: levETIRAcetam 500 MG in NS 100 ML IV SCH (12:00)
[2024-02-22] MEDS ORDERED: Vancomycin HCL 2,000 MG in NS 500 ML IV ONE (12:10)
[2024-02-22 15:24] VITALS: BP 122/99
--- NOTE | 2024-02-22 16:04 | NUR ---
SHIFT SUMMARY; PATIENT ARRIVE FROM PCU 18 TO MED FLOOR. SHE IS NON VERBAL MAKING MUMBLING ATTEMPTS AT SPEECH. PER LUDMILA FROM PATIENT FAILED HER BARIUM SWALLOW STUDY THIS EARLY AFTERNOON AND IS TO BE NPO EXCEPT FOR PILLS CRUSHED IN APPLESAUCE OR YOGURT. IV LR INFUSING ORDERED. FAMILY (SISTER IN LAW AT BEDSIDE) WILMAR AGUILADANCE HISTORIAN IS NOTIFIED AND WILL COME TO SPEAK WITH FAMILY ABOUT OPTIONS GOING FORWARD AND DIRECTION OF CARE.
--- NOTE | 2024-02-22 16:33 | NUR ---
PT WAS NPO FOR THE DAY PENDING BARIUM SWALLOW STUDY. KEPPRA WAS GIVEN IV DUE TO NPO STATUS. PT IS ALERT, SHE IS ABLE TO EXPRESS NEES WITH 1-2 WORD PHRASES, SHE DOES NOT MAKE GOOD EYE CONTACT SHE OFTEN TIMES LOOKS AWAY WHEN SPOKEN TO OR ROLLS EYES AND TURNS HEAD. SHE IS FREQUENTLY TEARFUL, DOES BECOME VERY EMOTIONAL WHEN HER STROKE IS TALKED ABOUT. SHE DENIES ANY PAIN, DENIES CP, NO FREE OF NASAL FLARRING OR RETRACTIONS. SHE IS DECOMPENSATED T/O ALL EXTREMETIES POST MULTIPLE CVAs, PER FAMILY SHE WAS NOT ENGAGED IN PHYSICAL THERAPY AT [facility] AND PHYSICAL THERAPY WAS STOPPED. PULSES ARE 2+ TO RADIAL AND PEDAL BILAT. SKIN IS PWD, SKIN IS IN GOOD CONDITION. MEPILEX PLACED TO COCCYX FOR BREAKDOWN PREVENTION. SISTER IN LAW THAT HER IS POA EXPRESSED A GREAT DEAL OF CONCERNS ABOUT NEGLECT AT [facility], STATING THAT SKIN WAS NOT WELL CARED FOR, JEANNA FROM CASE MANAGEMENT WAS IN TO SPEAK WIT SISTER IN LAW ABOUT HER CONCERNS. LUNGS ARE CLEAR TO DIM T/O, SPO2 >94% ON RA. PATIENT DOES NOT PARTICPATE IN HER CARE. VSS.
[2024-02-22] MEDS ORDERED: FentaNYL Citrate 50 MCG/ML 2 ML Injection IV PRN (16:35)
[2024-02-22] MEDS ORDERED: Acetaminophen 650 MG Supp PR PRN (16:40)
[2024-02-22] MEDS ORDERED: Promethazine HCl 12.5 MG Supp PR PRN (16:40)
[2024-02-22] MEDS ORDERED: NS 250 ML IV PRN (16:40)
--- NOTE | 2024-02-22 17:16 | NUR ---
Called to meet with family of patient. pt just had barrium having some wretching and nausea. Pt vomited some barium. Nurse medicated with nasuea meds and tylenol. pt able to participate slightly, Concern that pt is high risk for rapid decline or seizures. Facial trauma from a fall at the residential. Revew of the past few years with her sister in law. Relays great suffering. After assessment of patient and review with family. Suggested Hospice, reayed to family she needs dignity and comfort. 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 Goal is some quality time with her brother and family. Presents as very locked in and frustrated. Advised pt may benefet from more time with a chaplian for moral support and releif of some possible grief.
[2024-02-22 19:25] VITALS: BP 135/82
[2024-02-22] MEDS ORDERED: Metoprolol Tartrate 1 MG/ML 5 ML VIAL IV PRN ×2 (20:00→20:05)
[2024-02-23] MEDS ORDERED: Vancomycin HCL 1,250 MG in NS 250 ML IV SCH (01:00)
[2024-02-23 04:52] VITALS: BP 121/92
[2024-02-23 07:26] LABS: BASOPHILS ABSOLUTE AUTO 0.03 K/mm3 (0.00-0.23); BASOPHILS PERCENT AUTO 0 % (0-2); EOSINOPHILS ABSOLUTE AUTO 0.06 K/mm3 (0.00-0.68); EOSINOPHILS PERCENT AUTO 1 % (0-6); Hematocrit 32.2 % (33.0-51.0); Hemoglobin 10.4 g/dL (11.5-16.0); IMMATURE GRAN ABSOLUTE AUTO 0.03 K/mm3 (0.00-0.10); IMMATURE GRAN PERCENT AUTO 0 % (0-1); LYMPHOCYTES PERCENT AUTO 24 % (21-46); MONOCYTES ABSOLUTE AUTO 0.62 K/mm3 (0.16-1.47); MONOCYTES PERCENT AUTO 8 % (4-13); Mean Corpuscular HGB 30.2 pg (26.0-34.0); Mean Corpuscular HGB Conc 32.3 g/dL (31.5-36.5); Mean Corpuscular Volume 94 fL (80-100); Mean Platelet Volume 9.1 fL (9.1-12.4); NEUTROPHILS ABSOLUTE AUTO 4.93 K/mm3 (1.96-9.15); NEUTROPHILS PERCENT AUTO 66 % (41-73); Platelet Count 197 K/mm3 (150-400); RDW Coefficient Variation 14.9 % (11.7-14.2); RDW Standard Deviation 50.1 fL (35.1-46.3); Red Blood Cell Count 3.44 M/mm3 (3.80-5.20); White Blood Cell Count 7.47 K/mm3 (4.00-11.30)
[2024-02-23 07:51] VITALS: BP 133/87
[2024-02-23 07:53] LABS: Calcium, Blood 7.9 mg/dL (8.5-10.1); Creatinine, Blood 0.75 mg/dL (0.40-1.00); Potassium, Blood 3.3 mmol/L (3.5-5.5)
[2024-02-23] MEDS ORDERED: Potassium Chl 20MEQ/Water100ML 100 ML IV STA (08:11)
[2024-02-23] MEDS ORDERED: Morphine Sulfate 20 MG/1ML 1 ML Oral Syringe PO PRN (11:50)
--- NOTE | 2024-02-23 17:17 | NUR ---
SHIFT SUMMARY: PT STILL HARD TO ASSESS AWARENESS DUE TO NON VERBAL OR COMMUNICATIVE STATE. SOMETIMES RESPONDS TO QUESTIONS FROM FAMILY WITH ONE WORD/ GESURES. TOLERATING MEDICATIONS WELL, CAN TAKED MEDS CRUSHED WITH APPLESAUCE, BUT CAN STILL ASPIRATE NORMAL LIQUIDS. PT PLACED ON COMFORT CARE TODAY. 2 LARGE BM, WITH FULL BED CHANGED AND PUREWICK CHANGES. PUREWICK PULLLING DARK URINE INTO SUCTION CANNISTER. TOLERATING ANTIBIOTICS AND IV KEPPRA WELL. FAMILY AT BEDSIDE. PT COMFORTABLE IN BED, BED IN LOWEST POSITION AND CALL LIGHT IS WITHIN REACH. CONTINUING CARE.
[2024-02-24 01:05] LABS: Vancomycin, Trough 23.2 ug/mL (5.0-10.0)
[2024-02-24] MEDS ORDERED: Vancomycin HCL 1,500 MG in NS 250 ML IV SCH (06:00)
--- NOTE | 2024-02-24 06:49 | NUR ---
SHIFT SUMMARY: Pt is admitted for sepsis and is a DNR. is on comfort care. is alert but not able to make her needs known very easy. Able to answer yes or no questions and say a word on occasion. ADLs have been 2p. Denies pain or discomfort when asked.
[2024-02-24] MEDS ORDERED: Warfarin Sodium 5 MG Tab PO SCH (18:00)
--- NOTE | 2024-02-24 19:06 | NUR ---
SHIFT SUMMARY: PT AWAKE AND WATCHING, DOING SOME TALKING AND CAN ANSWER SOME YES OR NO QUESTIONS WITH SHORT PHRASES. HAD A BED BATH TODAY AND TWO FULL BED CHANGES. CONTINUES ON PUREWICK FOR CARE. HAS TOLERATED HONEY THICK WATER AND LIQUIDS WITHOUT ASPIRATING OR COUGHING. ORAL CARE ALSO PERFORMED PER REQ. TOLERATING MEDICATIONS WELL. FAMILY AT BEDSIDE. SUPPOSITORY PHENIGRIN AND TYLENOL GIVEN PER EMR. CONTINUING CARE.
--- NOTE | 2024-02-24 19:08 | NUR ---
THIS NET APPLICATIONS DEVELOPER HAS REVIEWED AND AGREES WITH ALL NOTES AND ASSESSMENTS BY MINGO VALLADARES.
[2024-02-25 06:42] LABS: International Normalized Ratio 1.38; Prothrombin Time Results 14.4 Sec (9.7-11.5)
--- NOTE | 2024-02-25 17:34 | NUR ---
SHIFT NOTE: PT ABLE TO ANSWER YES/NO QUESTIONS ONLY. SHE DENIES PAIN. SHE HAS BEEN REPOSITIONED BY STAFF FOR COMFORT. SHE HAS HAD FAMILY AND FRIENDS AT BEDSIDE THROUGHOUT SHIFT. SHE IS INCONT, PUREWICK IN PLACE TO PROTECT SKIN. SHE REQUIRES STAFF TO FEED HER AND GIVE HER DRINKS OF FLUIDS. SHE TOLERATED HER MEDS CRUSHED IN APPLESAUCE. CALL LIGHT IN REACH
[2024-02-25] MEDS ORDERED: Warfarin Sodium 7.5 MG Tab PO ONE (18:00)
--- NOTE | 2024-02-26 04:47 | NUR ---
SHIFT SUMMARY. PATIENT IS ALERT TO SELF-ANSWERS YES OR NO QUESTIONS AND RESPONDS TO NAME. PATIENT RESTING WITH NO C/O PAIN WHEN ASSESSED. PATIENT REPOSITIONED NEEDED FOR COMFORT. PATIENTS SISTER IN-LAW AT BEDSIDE AT BEGINNING OF SHIFT-TO RETURN IN AM. PATIENT IS ON COMFORT CARE. PATIENT HAS DRAIN TO ABDOMIN. PATIENT IS COOPERATIVE WITH CARE. PATIENT TAKING MEDS CRUSHED IN APPLESAUCE. PATIENT HAS PUREWICK IN PLACE FOR COMFORT. BED IS LOCKED IN THE LOWEST POSITION WITH CALL LIGHT IN REACH. PLAN IS FOR PATIENT TO DISCHARGE TO [facility] TODAY ON HOSPICE. CARE IS ONGOING.
[2024-02-26 07:32] LABS: International Normalized Ratio 2.06; Prothrombin Time Results 20.9 Sec (9.7-11.5)
--- NOTE | 2024-02-26 10:38 | NUR ---
TO BE TRANSFERRED BACK TO [facility] AT 1400, HOSPICE NURSE IN AT BEDSIDE WITH PATIENT AND [id number], MEDICATED WITH ROXINAL FOR PATIENT REPORTING PAIN AND GRIMACING, REPOSITIONED IN BED
[2024-02-26] MEDS ORDERED: ACET120S PR (13:29)
[2024-02-26] MEDS ORDERED: FENTANYL IV (13:47)
[2024-02-26] MEDS ORDERED: MORP20L PO (13:51)
[2024-02-26] MEDS ORDERED: VISBIOME 112.51 EACH PO (13:52)
[2024-02-26] MEDS ORDERED: PROM12.5S PR (13:52)
--- NOTE | 2024-02-26 14:40 | NUR ---
DISCAHRGED TO [facility], REPORT TO FREDDY AT [facility], SISTER IN LAW AT BEDSIDE, PATIENT TRANSPORTED VIA STRETCHER, ABD DRAIN REMOVED PER DR COOL'S OKAYED. PLEASANT TO CARE
[2024-02-26] MEDS ORDERED: Warfarin Sodium 5 MG Tab PO SCH (18:00)
== END 2024-02-26 14:26 | disposition hospice, home (50) | DRG 872 ==
LOC: ER 09:41 → PCU 14:58 → MEDS 02-22 15:35 → ENPENDDIS 02-26 13:03 → MEDS 02-26 14:26
PROVIDERS: Hospitalist; Student in an Organized Health Care Education/Training Program; ADMIT Internal Medicine
PROC: 3E03329 Introduction of Other Anti-infective into Peripheral Vein, Percutaneous Approach (ICD-10-PCS; principal; 2024-02-18)
PROC: 0W9G30Z Drainage of Peritoneal Cavity with Drainage Device, Percutaneous Approach (ICD-10-PCS; 2024-02-21)
DX: A41.9 Sepsis, unspecified organism (principal); K57.20 Diverticulitis of large intestine with perforation and abscess without bleeding; D68.59 Other primary thrombophilia; E87.0 Hyperosmolality and hypernatremia; I69.951 Hemiplegia and hemiparesis following unspecified cerebrovascular disease affecting right dominant side; N39.0 Urinary tract infection, site not specified; Z68.42 Body mass index [BMI] 45.0-49.9, adult; R65.20 Severe sepsis without septic shock; Z51.5 Encounter for palliative care; Z66 Do not resuscitate; F32.9 Major depressive disorder, single episode, unspecified; M19.90 Unspecified osteoarthritis, unspecified site; F41.9 Anxiety disorder, unspecified; G43.909 Migraine, unspecified, not intractable, without status migrainosus; E66.9 Obesity, unspecified; R13.10 Dysphagia, unspecified; E87.6 Hypokalemia; K80.20 Calculus of gallbladder without cholecystitis without obstruction; D64.9 Anemia, unspecified; G40.909 Epilepsy, unspecified, not intractable, without status epilepticus; Z79.899 Other long term (current) drug therapy; Z79.01 Long term (current) use of anticoagulants; Z79.891 Long term (current) use of opiate analgesic
CPT/HCPCS: 0241U; 36415; 51701; 71045; 74176; 74177; 74230; 75989; 80048; 80053; 80202; 81001; 82803; 82947; 83605; 85025; 85520; 85610; 85730; 87040; 87070; 87075; 87077; 87086; 87186; 87205; 92526; 92610; 92611; 93005; 93010; 94762; 96361; 96365; 96366; 96367; 99285-25; A9270; C1751; J0696; J1650; J1953; J2543; J3010; J3370; J3480; J7030; J7040; J7050; J7120; Q9967